=== PATIENT | male | born 1990 | race Caucasian/White ===

== ENCOUNTER → 2016-12-28 | Outpatient (CLI) | payer OTHER ==
[~2016-12-28] MED LIST: CONRAY-43 43% 50ML VIAL (Q9960) As Ordered ONE
--- NOTE | 2016-12-28 09:57 | REP ---
MR arthrogram left hip: History: Left hip pain . Comparison studies: No comparison radiographs . Technique: Precontrast imaging includes coronal T1 and T2-weighted scans of both hips. Postcontrast small field of view high resolution axial, coronal and sagittal images are acquired in T1 and T2-weighted scans with fat saturation. MR arthrographic findings: pre injection imaging shows no evidence of joint effusion. Cortical and medullary bone signal intensity are normal in the proximal femurs. There is no evidence to suggest avascular necrosis. A small bone island is seen in the iliac bone on the right. No pelvic mass or adenopathy is seen. Post injection imaging shows good filling and enhancement of the left hip articulation. No loose body is seen. Ligamentum teres appears intact. Head neck junction morphology is normal. There is no evidence of cartilaginous labral tear. No periarticular cyst or abnormal fluid collection is seen. No tendon insertion site abnormality is seen. Impression: Unremarkable MR arthrography left hip. No evidence of labral tear. Signed by Raf Vazquez MD 12/28/2016 12:17 P
--- NOTE | 2016-12-28 19:32 | REP ---
Left hip arthrogram The procedure was performed under the direction supervision of Dr. Vazquez. The benefits and risks including but not limited to pain, infection, bleeding and anaphylaxis were explained to the patient and informed consent was obtained. The left femoral neck was localized using fluoroscopic guidance. Skin was prepped and draped in a sterile fashion. 1% lidocaine was used as a local anesthetic. Using fluoroscopic guidance a 22 gauge spinal needle was inserted and advanced to the femoral neck. 0.5 ml of Conray 43 was injected to verify placement. 11 ml of a solution containing 20 ml of sterile saline and 0.15 ml of ProHance was injected into the joint. The needle was removed and the patient was taken to MRI for postprocedural imaging. The the patient tolerated the procedure well and there were no immediate complications. 2 seconds of fluoro time was utilized for this procedure. Reviewed by NATE Raines 12/28/2016 04:23 PSigned by Raf Vazquez MD 12/28/2016 07:24 P
== END ==
LOC: M RADPRO 06:59
DX: M25.552 Pain in left hip (principal)
CPT/HCPCS: 27093; 73525; 73723; A9576; Q9960